=== PATIENT | female | born 1960 | race Caucasian/White ===

== ENCOUNTER 2018-03-09 07:19 | Emergency (ER) | payer MEDICAID, OTHER ==
[~2018-03-09] VITALS: Ht 160 cm; Wt 77.1 kg
[2018-03-09 07:26] VITALS: BP 129/84
--- NOTE | 2018-03-09 07:32 | NUR ---
PT AMBULATED TO ER CHAIR C
--- NOTE | 2018-03-09 07:33 | NUR ---
57/F BIB SELF WITH C/O URINARY BURNING SENSATION, LOWER ABDOMINAL & LOWER BACK PAIN & DIARRHEA X 1 WEEK. PT STATES HAS DIARRHEA X 2 EPISODES X TODAY NO BLOODY STOOL. DENIES N/V. SKIN IS PINK/WARM/DRY; AAOX4 WITH EVEN AND STEADY GAIT; LUNGS CLEAR BL. PATIENT STATES PAIN OF 5/10 AT THIS TIME.
--- NOTE | 2018-03-09 07:36 | NUR ---
Patient being evaluated by DR DONG at bedside.
--- NOTE | 2018-03-09 07:38 | NUR ---
Note anneone in EDM - 03/09/18 at 0755 by MED1 57/F BIB SELF WITH C/O URINARY BURNING SENSATION, LOWER ABDOMINAL & LOWER BACK PAIN & DIARRHEA X 1 WEEK. PT STATES HAS DIARRHEA X 2 EPISODES X TODAY NO BLOODY STOOL. DENIES N/V. SKIN IS PINK/WARM/DRY; AAOX4 WITH EVEN AND STEADY GAIT; LUNGS CLEAR BL. PATIENT STATES PAIN OF 7/10 AT THIS TIME.
[2018-03-09] MEDS ORDERED: cefTRIAXone 1,000 MG in LIDOCAINE 1% ***ER ONLY *** 2.1 ML IM ONE (07:40)
[2018-03-09] MEDS ORDERED: cefTRIAXone 1,000 MG VIAL ONE (07:49)
[2018-03-09] MEDS ORDERED: LIDOCAINE MPF 1% - **ER/OR** 5 ML ONE (07:50)
[2018-03-09 08:12] VITALS: BP 126/84
--- NOTE | 2018-03-09 08:12 | NUR ---
Patient discharged with v/s stable. Written and verbal after care instructions given and explained. Patient alert, oriented and verbalized understanding of instructions. Ambulatory with steady gait. All questions addressed prior to discharge. ID band removed. Patient advised to follow up with PMD. Rx of LEVAQUIN & PHENAZOPYRIDINE given. Patient educated on indication of medication including possible reaction and side effects. Opportunity to ask questions provided and answered.
[2018-03-09 08:44] LABS: APPEARANCE,URINE HAZY (CLEAR); BILIRUBIN,URINE NEGATIVE (NEGATIVE); BLOOD, URINE 1+ (NEGATIVE); COLOR,URINE YELLOW (YELLOW); LEUKOCYTE ESTERASE ,URINE 2+ (NEGATIVE); NITRITE, URINE POSITIVE (NEGATIVE); UGLUCOSE NEGATIVE (NEGATIVE)
[2018-03-09 08:53] LABS: RBC,URINE 0-5 (RARE) /HPF (0-5); WBC,URINE 80-100 /HPF (0-5)
--- NOTE | 2018-03-10 15:18 | NUR ---
PATIENT DISCHARGED WITH LEVAQUIN AND PYRIDIUM, NO ID AND S REPORT AVAILABLE.
== END 2018-03-09 08:12 | disposition home or self-care (01) ==
LOC: MED 07:19
DX: N39.0 Urinary tract infection, site not specified (principal)
CPT/HCPCS: 81001; 87086; 96372; 99284; J0696; J2001; 87186

== ENCOUNTER 2018-03-10 18:47 | Inpatient (IN) | payer OTHER ==
[~2018-03-10] VITALS: Ht 160 cm; Wt 79.4 kg
[2018-03-10 18:52] VITALS: BP 122/76
--- NOTE | 2018-03-10 18:59 | NUR ---
PT AMBULATED TO BED 4
--- NOTE | 2018-03-10 19:05 | NUR ---
PATIENT PRESENTS TO ER FOR INCREASING LOWER ABDOMINAL PAIN AND RADIATING BACK PAIN WITH UTI. PATIENT WAS DIAGNOSED YESTERDAY BUT STATES PAIN IS GETTING WORSE. PATIENT STATES PAIN IS 7/10. PATIENT MADE COMFORTABLE X1 BEDRAIL UP, HOB UP. DENIES N/V/D; SKIN IS PINK/WARM/DRY; AAOX4 WITH EVEN AND STEADY GAIT; LUNGS CLEAR BL; HR EVEN AND REGULAR; PT DENIES ANY FEVER, CP, SOB, OR COUGH AT THIS TIME;VSS; ER MD MADE AWARE OF PT STATUS.
--- NOTE | 2018-03-10 19:07 | NUR ---
RECEIVED REPORT FROM ALEX BONILLA. TRANSFER OF CARE AT THIS TIME.
[2018-03-10] MEDS ORDERED: KETOROLAC 30 MG/ML VIAL IVP ONE (19:45)
[2018-03-10] MEDS ORDERED: NACL 0.9% 1,000 ML IV ONE (19:45)
--- NOTE | 2018-03-10 19:51 | NUR ---
PT TAKEN IN WHEELCHAIR TO CT
--- NOTE | 2018-03-10 19:59 | NUR ---
PT BACK FROM CT
[2018-03-10 20:33] LABS: BASOPHILS % (AUTO) 0.7 % (0.0-2.0); EOSINOPHILS # (AUTO) 0.1 K/uL (0-0.4); EOSINOPHILS % (AUTO) 1.7 % (0.0-4.0); HEMATOCRIT 39.7 % (36-48); HEMOGLOBIN 13.2 g/dL (12.0-16.0); LYMPHOCYTES # (AUTO) 1.7 K/uL (2.5-16.5); LYMPHOCYTES % (AUTO) 27.8 % (20.5-51.1); MEAN CORPUSCULAR HEMOGLOBIN 33 pg (27-31); MEAN CORPUSCULAR HGB CONC 33 g/dL (33-37); MONOCYTES % (AUTO) 16.4 % (1.7-9.3); NEUTROPHILS # (AUTO) 3.3 K/uL (1.8-7.7); NEUTROPHILS % (AUTO) 53.4 % (42.2-75.2); PLATELET COUNT (AUTO) 166 K/uL (140-450); RED BLOOD CELL COUNT(AUTO) 4.05 MIL/uL (4.20-5.40); WHITE BLOOD COUNT (AUTO) 6.2 K/uL (4.8-10.8)
[2018-03-10 20:54] LABS: ANION GAP 12.1 (8-16); CARBON DIOXIDE 29.8 mmol/L (21-32); CREATININE 0.7 mg/dL (0.6-1.3); POTASSIUM 4.9 mmol/L (3.5-5.1)
[2018-03-10] MEDS ORDERED: metroNIDAZOLE 500 MG/NS PREMIX 100 ML IV ONE (21:00)
[2018-03-10] MEDS ORDERED: LEVOFLOXACIN 750 MG/D5W PREMIX 150 ML IV ONE (21:00)
--- NOTE | 2018-03-10 21:00 | NUR ---
PATIENT RESTING AT THIS TIME. NO SIGNS OF DISTRESS.
[2018-03-10 21:09] LABS: ALBUMIN 3.2 g/dL (3.4-5.0); TOTAL BILIRUBIN 0.7 mg/dL (0.0-1.0)
[2018-03-10] MEDS ORDERED: NACL 0.9% 1,500 ML IV ONE (21:15)
[2018-03-10] MEDS: NACL 0.9% 1,000 ML IV SCH (21:43)
[2018-03-10] MEDS ORDERED: ACETAMINOPHEN 325 MG TAB PO PRN (21:45)
[2018-03-10] MEDS ORDERED: ONDANSETRON 4 MG/2 ML VIAL IVP PRN (21:45)
--- NOTE | 2018-03-10 22:15 | NUR ---
LEVAQUIN 750 MG STARTED IN L FOREARM 20G AT 100ML/HOUR. ENDORSED TO JOON BONILLA. Addendum: 03/11/18 at 0224 by MEDDCV LEVAQUIN 750 MG STARTED IN R FOREARM 20G AT 100ML/HOUR. ENDORSED TO JOON STONE
--- NOTE | 2018-03-10 22:18 | NUR ---
Patient will be admitted to care of DR. STEWARD. Admited to M/S. Will go to room 115. Belongings list completed. Report to JOON BONILLA.
[2018-03-10 22:25] VITALS: BP 113/68
--- NOTE | 2018-03-10 22:25 | NUR ---
LEVAQUIN 750MG STARTED IN ER. FINISHED ON THE FLOOR.
--- NOTE | 2018-03-10 22:25 | NUR ---
PATIENT ADMITTED TO THE UNIT FROM ER. PATIENT IS AOX4. NO SIGNS AND SYMPTOMS OF DISTRESS NOTED. NO COMPLAINTS OF PAIN AT THIS TIME. PATIENT IS ON ROOM AIR. IV SITE NOTED ON RIGHT FOREARM, IVF INFUSING WELL. PLAN OF CARE DISCUSSED WITH PATIENT. PATIENT VERBALIZED UNDERSTANDING. BED IN LOWEST POSITION, SIDE RAILS UP AND CALL LIGHT WITHIN REACH. WILL CONTINUE TO MONITOR.
[2018-03-10] MEDS: LEVOFLOXACIN 500 MG/D5W PREMIX 100 ML IV SCH ×2 (23:00→23:07)
[2018-03-10 23:44] LABS: APPEARANCE,URINE TURBID (CLEAR); BILIRUBIN,URINE NEGATIVE (NEGATIVE); BLOOD, URINE NEGATIVE (NEGATIVE); COLOR,URINE RED (YELLOW); LEUKOCYTE ESTERASE ,URINE TRACE (NEGATIVE); NITRITE, URINE POSITIVE (NEGATIVE); PH,URINE 5.5 (5.0-9.0); UGLUCOSE TRACE (NEGATIVE)
--- NOTE | 2018-03-11 | NUR ---
CALLED DR. HAQUE TO VERIFY IF HE WANTED ME TO ADMINISTER THE 500MG LEVAQUIN, HE SAID NO. SINCE THE 750MG WAS ALREADY GIVEN
[2018-03-11 00:07] LABS: RBC,URINE TOO NUMEROUS TO COUN /HPF (0-5)
--- NOTE | 2018-03-11 02:25 | NUR ---
CHECKED ON PATIENT. PATIENT IS ASLEEP. NO SIGNS AND SYMPTOMS OF DISTRESS NOTED. BREATHING EVEN AND UNLABORED. WILL CONTINUE TO MONITOR.
--- NOTE | 2018-03-11 04:00 | NUR ---
CHECKED ON PATIENT. PATIENT IS ASLEEP. NO SIGNS AND SYMPTOMS OF DISTRESS NOTED. BREATHING EVEN AND UNLABORED. WILL CONTINUE TO MONITOR.
[2018-03-11] MEDS: metroNIDAZOLE 500 MG/NS PREMIX 100 ML IV SCH ×3 (04:51→20:56)
[2018-03-11] MEDS: NACL 0.9% 1,000 ML IV SCH ×2 (04:57→18:56)
[2018-03-11 06:01] LABS: BASOPHILS # (AUTO) 0.2 K/uL (0.00-0.22); BASOPHILS % (AUTO) 3.7 % (0.0-2.0); EOSINOPHILS # (AUTO) 0.1 K/uL (0-0.4); HEMATOCRIT 34.5 % (36-48); HEMOGLOBIN 11.6 g/dL (12.0-16.0); LYMPHOCYTES # (AUTO) 1.2 K/uL (2.5-16.5); LYMPHOCYTES % (AUTO) 28.5 % (20.5-51.1); MEAN CORPUSCULAR HEMOGLOBIN 33 pg (27-31); MEAN CORPUSCULAR HGB CONC 34 g/dL (33-37); MEAN CORPUSCULAR VOLUME 96.8 fL (80-94); MONOCYTES # (AUTO) 0.9 K/uL (0.8-1.0); MONOCYTES % (AUTO) 21.3 % (1.7-9.3); NEUTROPHILS % (AUTO) 44.5 % (42.2-75.2); PLATELET COUNT (AUTO) 127 K/uL (140-450); RED BLOOD CELL COUNT(AUTO) 3.56 MIL/uL (4.20-5.40); RED CELL DISTRIBUTION WIDTH 11.9 % (11.6-13.7); WHITE BLOOD COUNT (AUTO) 4.4 K/uL (4.8-10.8)
[2018-03-11 06:21] LABS: ANION GAP 9.7 (8-16); CARBON DIOXIDE 26.4 mmol/L (21-32); CREATININE 0.5 mg/dL (0.6-1.3); POTASSIUM 4.1 mmol/L (3.5-5.1)
--- NOTE | 2018-03-11 07:25 | NUR ---
PATIENT REPORT GIVEN TO MORNING NURSE AT BEDSIDE FOR CONTINUITY OF CARE. PATIENT IS IN STABLE CONDITION
--- NOTE | 2018-03-11 07:26 | NUR ---
RECEIVED REPORT FROM HAND ETCHER NURSE. PATIENT SITTING IN BED COMFORTABLY WATCHING VIDEOS ON PHONE. COMPLAINTS OF LOWER BACK PAIN, WILL MEDICATE WITH PAIN MEDICATION PER ORDERS. DENIES NAUSEA/VOMITING, NOR ABDOMINAL PAIN. REPORTS HAVE X2 DIARRHEA THIS MORNING. RESPIRATIONS EVEN, UNLABORED, ON ROOM AIR. AAOX4, CALM, COOPERATIVE, SKIN COLOR APPROPRIATE TO ETHNICITY, WARM TO TOUCH. SKIN IS INTACT AND ABLE TO AMBULATE WITH STEADY GAIT. LUNGS CTA ON ALL LOBES. ABDOMEN SOFT, NON-DISTENDED. REVIEWED PLAN OF CARE WITH PATIENT. PATIENT VERBALIZED UNDERSTANDING. SAFETY MEASURES IN PLACE, CALL LIGHT WITHIN REACH. WILL CONTINUE TO MONITOR.
[2018-03-11 08:00] VITALS: BP 123/81
[2018-03-11] MEDS: HYDROcodone/APAP 5/325 MG 1 TAB TAB PO PRN ×2 (08:45→16:27)
[2018-03-11] MEDS: ENOXAPARIN 40 MG/0.4 ML SYR SUBQ SCH (08:46)
--- NOTE | 2018-03-11 08:46 | NUR ---
PATIENT SITTING IN BED COMFORTABLY. NO DISTRESS NOTED. COMPLAINTS OF 6/10 LOW BACK PAIN, NORCO GIVEN PER MD ORDERS. ENOXAPARIN WITHELD DUE TO DECREASED PLATELETS. SAFETY MEASURES IN PLACE, CALL LIGHT WITHIN REACH. WILL CONTINUE TO MONITOR.
--- NOTE | 2018-03-11 08:48 | NUR ---
PATIENT HAS BEEN SCREENED AND CATEGORIZED HIGH NUTRITION RISK. PATIENT WILL BE SEEN WITHIN 1-2 DAYS OF ADMISSION. 03/11/18 03/12/[address]
--- NOTE | 2018-03-11 13:26 | NUR ---
PATIENT SITTING IN BED WATCHING VIDEOS ON PHONE. NO DISTRESS NOTED. DENIES ANY PAIN. SCHEDULED ANTIBIOTIC DUE GIVEN. SAFETY MEASURES IN PLACE, CALL LIGHT WITHIN REACH. WILL CONTINUE TO MONITOR.
--- NOTE | 2018-03-11 13:38 | NUR ---
03/11/18 RD INITIAL ASSESSMENT COMPLETED PLEASE REFER TO NUTRITION ASSESSMENT UNDER CARE ACTIVITY FOR ESTIMATED NUTRITIONAL NEEDS. 1. CONTINUE CLEAR LIQUID DIET TOLERATED 2. IF/WHEN MEDICALLY STABLE CONSIDER ADVANCE DIET TOLERATED TO REGULAR. 3. RECOMMEND THERAGRAN 4. RD TO FOLLOW-UP 3-5 DAYS, MODERATE RISK BENJY [address]IE[address]
--- NOTE | 2018-03-11 15:21 | NUR ---
FAXED INITIAL REVIEW TO [facility] [phone] PHONE [phone]
[2018-03-11 16:00] VITALS: BP 118/76
--- NOTE | 2018-03-11 16:27 | NUR ---
PATIENT SITTING IN BED WATCHING TV. COMPLAINS OF 6/10 LOW BACK PAIN, NORCO GIVEN PER ORDERS. CONDITION UNCHANGED. PATIENT HAD NO BM SINCE EARLIER DIARRHEA EPISODES. WILL COLLECT CDIFF STOOL CULTURE WHEN PATIENT HAS BM. PATIENT ALREADY AWARE. SAFETY MEASURES IN PLACE, CALL LIGHT WITHIN REACH. WILL CONTINUE TO MONITOR.
--- NOTE | 2018-03-11 17:45 | NUR ---
PATIENT SITTING IN BED WATCHING TV WITH DINNER TRAY IN FRONT. NO DISTRESS NOTED. CONDITION UNCHANGED. WILL CONTINUE TO MONITOR.
--- NOTE | 2018-03-11 19:27 | NUR ---
RECEIVED FROM AM RN PT. COMING FROM RESTROOM AND HAD URINATED ON THE FLOOR. UNABLE TO HOLD IT WHILE GOING TO RESTROOM. PT. TOLD IT IS OK I WILL HAVE HOUSE KEEPING CLEAN IT UP. PT. ENCOURAGED TO GO BACK TO BED SO SHE WONT STEP ON HER URINE AND HAVE AN ACCIDENT. SEEN BACK IN BED BEFORE I LEFT. CALL LIGHT WITH IN REACH. ABLE TO VERBALIZE NEEDS WELL. DENIES PAIN AT THIS TIME. IVF SITE TO [facility]20 INTACT AND NO INFILTRATION.
--- NOTE | 2018-03-11 19:28 | NUR ---
GAVE REPORT TO COMMUTATOR INSPECTOR NURSE FOR CONTINUITY OF CARE. PATIENT IN STABLE CONDITION.
[2018-03-11 23:49] VITALS: BP 135/84
--- NOTE | 2018-03-11 23:50 | NUR ---
PT. WENT TO RESTROOM X 2 ALREADY TO URINATE. NO BM YET. ABLE TO AMBULATE BY HERSELF. A/O X 4. PT. AT THIS TIME SLEEPING BUT WOKE UP EASILY RT TOOK VITAL SIGNS. DENIES PAIN AT THIS TIME. CALL LIGHT WITH IN REACH.
--- NOTE | 2018-03-12 03:30 | NUR ---
SLEEPING AT THIS TIME. SEEN PT. AMBULATE TO RESTROOM BY HERSELF. AFEBRILE. ABLE TO USE CALL LIGHT FOR HELP.
[2018-03-12] MEDS: MORPHINE SULFATE 4 MG/ML SYR IVP PRN ×2 (05:29→11:27)
[2018-03-12] MEDS: metroNIDAZOLE 500 MG/NS PREMIX 100 ML IV SCH ×2 (05:29→13:54)
[2018-03-12 05:31] VITALS: BP 128/84
[2018-03-12] MEDS: NACL 0.9% 1,000 ML IV SCH ×2 (05:31→13:43)
--- NOTE | 2018-03-12 05:34 | NUR ---
PT. COMPLAINED OF LOWER ABDOMINAL PAIN AT THIS TIME OF 05/17. MEDICATED REQUESTED. STATED SHE WANTS TO MAKE THE PAIN GO AWAY FAST. MEDICATED WITH MORPHINE 2 MG IVP ORDERED. PT. A/O X 4. ROM X 4. COLLECTED STOOL WATERY IN CONSISTENCY FOR TEST REQUESTED.
--- NOTE | 2018-03-12 07:10 | NUR ---
RECEIVED BEDSIDE REPORT FROM MANAGER OF SUSTAINABILITY NURSE. PATIENT IS SLEEPING. NO SIGNS OF RESP DISTRESS ON ROOM AIR. IV ON R FA 20G. INFUSING NS @100 ML. IV IS CLEAN, DRY AND INTACT. PATIENT IS ABLE TO AMBULATE TO THE RESTROOM PER MANAGER OF SUSTAINABILITY NURSE. STOOL CULTURE WAS SENT TO THE LAB. PATIENT IS ON CONTACT PRECAUTION TO RULE OUT C. DIF. WILL AWAIT STOOL CULTURE. WILL CONTINUE TO MONITOR THE PATIENT.
[2018-03-12 08:00] VITALS: BP 127/81
--- NOTE | 2018-03-12 08:30 | NUR ---
PATIENT IS RESTING COMFORTABLY. NO COMPLAINTS AT THIS TIME. WILL CONTINUE TO MONITOR THE PATIENT.
[2018-03-12] MEDS: ENOXAPARIN 40 MG/0.4 ML SYR SUBQ SCH (09:00)
[2018-03-12 09:35] LABS: BASOPHILS % (AUTO) 0.4 % (0.0-2.0); EOSINOPHILS # (AUTO) 0.1 K/uL (0-0.4); EOSINOPHILS % (AUTO) 2.6 % (0.0-4.0); HEMATOCRIT 35.2 % (36-48); HEMOGLOBIN 11.8 g/dL (12.0-16.0); LYMPHOCYTES % (AUTO) 19.1 % (20.5-51.1); MEAN CORPUSCULAR HEMOGLOBIN 33 pg (27-31); MEAN CORPUSCULAR HGB CONC 34 g/dL (33-37); MONOCYTES # (AUTO) 0.7 K/uL (0.8-1.0); MONOCYTES % (AUTO) 14.4 % (1.7-9.3); NEUTROPHILS # (AUTO) 3.3 K/uL (1.8-7.7); NEUTROPHILS % (AUTO) 63.5 % (42.2-75.2); PLATELET COUNT (AUTO) 138 K/uL (140-450); RED BLOOD CELL COUNT(AUTO) 3.63 MIL/uL (4.20-5.40); RED CELL DISTRIBUTION WIDTH 12.4 % (11.6-13.7); WHITE BLOOD COUNT (AUTO) 5.2 K/uL (4.8-10.8)
[2018-03-12 09:54] LABS: ALBUMIN 2.4 g/dL (3.4-5.0); ANION GAP 9.5 (8-16); CARBON DIOXIDE 27.5 mmol/L (21-32); CREATININE 0.7 mg/dL (0.6-1.3); TOTAL BILIRUBIN 0.7 mg/dL (0.0-1.0)
--- NOTE | 2018-03-12 10:08 | NUR ---
HELD THE LOVENOX DT DECREASED PLT. ADMINISTERED ANTIOBIOTIC. PATIENT TOLERATING MED WELL. IV IS CLEAN, DRY AND INTACT. NO COMPLAINTS AT THIS TIME. WILL CONTINUE TO MONITOR THE PATIENT.
--- NOTE | 2018-03-12 11:29 | NUR ---
ADMINISTERED PRN PAIN MED. PATIENT TOLERATED WELL. IV IS CLEAN, DRY AND INTACT. NO COMPLAINTS AT THIS TIME. WILL CONTINUE TO MONITOR THE PATIENT
--- NOTE | 2018-03-12 13:55 | NUR ---
ADMINISTERED MED. PATIENT TOLERATING WELL. IV IS CLEAN, DRY AND INTACT. NO COMPLAINTS AT THIS TIME. WILL CONTINUE TO MONITOR THE PATIENT.
--- NOTE | 2018-03-12 14:26 | NUR ---
PATIENT IS SLEEPING. NO SIGNS OF DISTRESS ON ROOM AIR. BED IN LOW POSITION. CALL LIGHT WITHIN REACH. WILL CONTINUE TO MONITOR THE PATIENT.
[2018-03-12 16:00] VITALS: BP 143/73
--- NOTE | 2018-03-12 16:01 | NUR ---
PATIENT IS SLEEPING. EASILY AROUSABLE. SHE HAS NO COMPLAINTS AT THIS TIME. BED IN LOW POSITION. WILL CONTINUE TO MONITOR THE PATIENT.
--- NOTE | 2018-03-12 17:14 | NUR ---
ULTRASOUND AT BEDSIDE. WILL CONTINUE TO MONITOR THE PATIENT.
[2018-03-12] MEDS ORDERED: CIPR500T4 PO (17:39)
[2018-03-12] MEDS ORDERED: METR250T2 PO (17:39)
--- NOTE | 2018-03-12 18:00 | NUR ---
EDUCATED THE PATIENT ON HER DISCHARGE. EDUCATED ON WHEN TO COME TO THE ER, IF SWELLING, TEMP, PAIN, AND SOB. PATIENT EDUCATED ON DISEASE, MEDICATIONS. MEDS WERE SENT TO [facility] IN [place], [place]. PATIENT IS AWARE. EDUCATED THE PATIENT ON THE IMPORTANCE TO FOLLOW UP WITH DR HEATH AND DR AUSTIN. PATIENT VERBALIZED UNDERSTANDING. IV IS REMOVED, IV TIP IS INTACT. ID BANDS REMOVED. PATIENT CHANGED. AWAITING HER RIDE. ALL PAPERWORK IS SIGNED. WILL CONTINUE TO MONITOR THE PATIENT.
--- NOTE | 2018-03-12 19:40 | NUR ---
PATIENT DISCHARGED IN WHEELCHAIR TO THE [facility]. PATIENT IS IN STABLE CONDITION
[2018-03-12 21:00] LABS: APPEARANCE,URINE CLEAR (CLEAR); BILIRUBIN,URINE NEGATIVE (NEGATIVE); BLOOD, URINE NEGATIVE (NEGATIVE); COLOR,URINE YELLOW (YELLOW); LEUKOCYTE ESTERASE ,URINE NEGATIVE (NEGATIVE); NITRITE, URINE NEGATIVE (NEGATIVE); UGLUCOSE NEGATIVE (NEGATIVE)
[2018-03-13 10:07] LABS: HEPATITIS B CORE AB TOTAL Negative (Negative); HEPATITIS B SURFACE ANTIGEN Negative (Negative)
== END 2018-03-12 19:40 | disposition home or self-care (01) | DRG 463 ==
LOC: MED 18:47 → EDBEDREQSVC 21:18 → MTU 21:49
PROVIDERS: ADMIT Hospitalist; ATTEND Hospitalist
DX: N39.0 Urinary tract infection, site not specified (principal); E88.09 Other disorders of plasma-protein metabolism, not elsewhere classified; K52.9 Noninfective gastroenteritis and colitis, unspecified; K80.20 Calculus of gallbladder without cholecystitis without obstruction; F17.210 Nicotine dependence, cigarettes, uncomplicated; Z98.51 Tubal ligation status
CPT/HCPCS: 36415; 76705; 76770; 80048; 80053; 81001; 81003; 83605; 83690; 85025; 85610; 86704; 86803; 87040; 87070; 87081; 87086; 87340; 96374; 99285; C1758; J0696; J1650; J1885; J1956; J2270; J3490; J7030; J7060; Q0092

== ENCOUNTER 2019-02-09 18:12 | Emergency (ER) | payer OTHER ==
[~2019-02-09] VITALS: Ht 160 cm; Wt 77.1 kg
[~2019-02-09 18:12] MED LIST: CIPR500T4 PO; METR250T2 PO
[2019-02-09 18:23] VITALS: BP 115/72
--- NOTE | 2019-02-09 18:30 | NUR ---
PT AMB TO LOBBY, NOT IN DISTRESS
--- NOTE | 2019-02-09 19:04 | NUR ---
PT TO ER BED 08
--- NOTE | 2019-02-09 19:05 | NUR ---
PT C/O PAIN TO THE RIGHT SHOULDER P/S FALL TODY. PT STATED SHE FELL ON THE SIDE WALK WHILE WALKINGTO WORK. NO OTHER INJURY NOTED. PT HAS MINIMAL ROM TO THE RIGHT ARM. PT STATES SHE HAS PAIN WHILE MOVING IT. PAIN LEVEL IS 8/10. PT IS A/OX4. MEDICAL HX NOTED WAS GALLSTONES, LMP WAS 5 YEARS AGO. MAKAYLA MEJIA MD MADE AWARE OF STATUS AND SAFETY PROTOCOL IN PLACE, BED RAILS UP X1.
[2019-02-09] MEDS ORDERED: IBUPROFEN 600 MG TAB PO ONE (19:35)
--- NOTE | 2019-02-09 19:35 | NUR ---
PT WENT TO XRAY.
--- NOTE | 2019-02-09 19:50 | NUR ---
PT BACK FROM XRAY
--- NOTE | 2019-02-09 20:25 | NUR ---
PT SLEEPING IN BED, VSS. COMFORT MEASURES OFFERED. PT TOLERATED WELL. WAITIG FOR X RAY RESULTS.
--- NOTE | 2019-02-09 20:25 | NUR ---
Margarita gonsalez in [facility] - 02/09/19 at 2024 by GLYNN pt sleeping in bed, vss
[2019-02-09 20:58] VITALS: BP 119/74
--- NOTE | 2019-02-09 20:58 | NUR ---
Patient discharged with v/s stable. Written and verbal after care instructions given and explained. Patient alert, oriented and verbalized understanding of instructions. Ambulatory with steady gait. All questions addressed prior to discharge. ID band removed. Patient advised to follow up with PMD. Rx of IBUPROFEN AND FLEXERIL WAS given. Patient educated on indication of medication including possible reaction and side effects. Opportunity to ask questions provided and answered.
== END 2019-02-09 20:58 | disposition home or self-care (01) ==
LOC: MED 18:12
DX: S46.911A Strain of unspecified muscle, fascia and tendon at shoulder and upper arm level, right arm, initial encounter (principal); R07.81 Pleurodynia; F17.200 Nicotine dependence, unspecified, uncomplicated; Z79.2 Long term (current) use of antibiotics; Z79.899 Other long term (current) drug therapy; W01.0XXA Fall on same level from slipping, tripping and stumbling without subsequent striking against object, initial encounter; Y93.89 Activity, other specified; Y92.89 Other specified places as the place of occurrence of the external cause; Y99.8 Other external cause status
CPT/HCPCS: 71101; 73030; 99283

== ENCOUNTER 2019-12-29 18:30 | Emergency (ER) | payer SELFPAY ==
[~2019-12-29] VITALS: Ht 160 cm; Wt 82.6 kg
[2019-12-29 18:56] VITALS: BP 145/89
--- NOTE | 2019-12-29 19:53 | NUR ---
Pt ambulated to [facility].
--- NOTE | 2019-12-29 20:14 | NUR ---
59 Y/O FEMALE PRESENTS WITH MIGRAINE X1 DAY, FRONTAL LOBE 8/10, SHARP PAIN. DENIES SOB/CP. RESP EVEN AND UNLABORED. LUNG SOUNDS CLEAR IN BILAT LOBES. PHOTOSENSITIVITY PRESENT, N/V PRESENT. DENIES FEVER/CHILLS. BOWEL SOUNDS NORMOACTIVE IN ALL QUADRANTS. AAOX3. PT HAS NOT MEDICATED FOR MIGRAINE TODAY. CAP REFILL <3. PMH: GALLSTONES NKA
[2019-12-29] MEDS ORDERED: ACETAMINOPHEN EXTRA STRENGTH 500 MG TAB PO ONE (20:25)
[2019-12-29] MEDS ORDERED: PROCHLORPERAZINE 10 MG/2 ML VIAL IM ONE (20:25)
[2019-12-29 21:12] VITALS: BP 140/80
== END 2019-12-29 21:12 | disposition home or self-care (01) ==
LOC: MED 18:30
DX: G43.909 Migraine, unspecified, not intractable, without status migrainosus (principal); Z79.899 Other long term (current) drug therapy
CPT/HCPCS: 96372; 99283; J0780; Q0163